=== PATIENT | male | born 1995 | race Caucasian/White ===

== ENCOUNTER 2017-09-03 16:44 | Emergency (ER) | payer OTHER ==
[~2017-09-03] VITALS: Ht 182.9 cm; Wt 83.9 kg
[2017-09-03 18:29] VITALS: BP 149/78
== END 2017-09-03 18:29 | disposition home or self-care (01) ==
LOC: EME 16:44
DX: F99 Mental disorder, not otherwise specified (principal); Z04.6 Encounter for general psychiatric examination, requested by authority; F17.200 Nicotine dependence, unspecified, uncomplicated
CPT/HCPCS: 90839; 99281; 99283

== ENCOUNTER 2017-10-25 14:46 | Emergency (ER) | payer OTHER ==
[~2017-10-25] VITALS: Ht 182.9 cm; Wt 87.9 kg
[2017-10-25 15:13] LABS: MCH 31.6 PG (29.0-34.0); MCHC 36.6 G/DL (30.0-36.0); MCV 86.3 FL (86-99); PLATELET COUNT 267 K/uL (156-360); RBC DIS.WIDTH-SD 38.2 % (39-53); RED BLOOD COUNT 4.75 M/uL (4.00-5.50); WHITE BLOOD COUNT 6.4 K/uL (4.1-10.2)
[2017-10-25 15:21] LABS: CHLORIDE 105 mEq/L (99-109); POTASSIUM 3.9 mEq/L (3.7-5.4); SODIUM 140 mEq/L (136-147)
[2017-10-25 15:22] LABS: GLUCOSE 100 mg/dL (70-99)
[2017-10-25 15:26] LABS: GFR ESTIMATE (CALCULATED) > 59 mL/min/ (58.99-99999)
[2017-10-25 15:27] LABS: UREA NITROGEN (BUN) 15 mg/dL (9-23)
[2017-10-25 16:00] LABS: APPEARANCE CLEAR ((CLEAR)); BILIRUBIN NEGATIVE; BLOOD NEGATIVE; COLOR YELLOW ((YELLOW)); GLUCOSE (STRIP) NEGATIVE; KETONES NEGATIVE; LEUKOCYTES NEGATIVE; NITRITE NEGATIVE; PROTEIN (STRIP) NEGATIVE; SPECIFIC GRAVITY 1.028 (1.000-1.030); UCUL ADDED? NO
[2017-10-25 16:58] VITALS: BP 138/82
== END 2017-10-25 17:00 | disposition home or self-care (01) ==
LOC: EME 14:46
DX: R19.7 Diarrhea, unspecified (principal); R10.32 Left lower quadrant pain
CPT/HCPCS: 74176; 80048; 81003; 85027; 99281; 99284; J1885